=== PATIENT | female | born 1995 | race Two or more races ===

== ENCOUNTER 2023-05-21 14:50 | Emergency (ER) | payer OTHER ==
[~2023-05-21] VITALS: Ht 152.4 cm; Wt 45.4 kg
== END 2023-05-21 20:36 | disposition home or self-care (01) ==
LOC: ER 14:50
DX: U07.1 COVID-19 (principal)

== ENCOUNTER → 2023-06-03 | Outpatient (CLI) | payer OTHER | END | disposition home or self-care (01) | LOC: SONOGRAMA 09:07 | DX: E06.3 Autoimmune thyroiditis (principal) ==

== ENCOUNTER 2023-09-22 08:18 | Outpatient (CLI) | payer OTHER | END 2023-09-22 09:23 | disposition home or self-care (01) | LOC: SONOGRAMA 08:18 | DX: N94.6 Dysmenorrhea, unspecified (principal); N83.00 Follicular cyst of ovary, unspecified side; N92.0 Excessive and frequent menstruation with regular cycle; R10.30 Lower abdominal pain, unspecified; K59.04 Chronic idiopathic constipation; M99.01 Segmental and somatic dysfunction of cervical region; M99.02 Segmental and somatic dysfunction of thoracic region; M99.03 Segmental and somatic dysfunction of lumbar region ==

== ENCOUNTER 2024-01-11 08:50 | Outpatient (CLI) | payer OTHER | END 2024-01-11 09:00 | disposition home or self-care (01) | LOC: TOM 08:50 | DX: N80.9 Endometriosis, unspecified (principal); R10.2 Pelvic and perineal pain ==

== ENCOUNTER 2024-07-26 08:35 | Outpatient (CLI) | payer OTHER ==
[2024-07-26 10:45] LABS: CREATININE SERUM 0.55 mg/dL (0.55-1.02)
== END 2024-07-26 08:39 | disposition home or self-care (01) ==
LOC: LAB 08:35
PROVIDERS: ATTEND Radiology Diagnostic Radiology
DX: R10.2 Pelvic and perineal pain (principal); R97.8 Other abnormal tumor markers; R97.1 Elevated cancer antigen 125 [CA 125]

== ENCOUNTER 2024-07-27 07:24 | Outpatient (CLI) | payer OTHER | END 2024-07-27 07:35 | disposition home or self-care (01) | LOC: TOM 07:24 | DX: R10.2 Pelvic and perineal pain (principal); N80.9 Endometriosis, unspecified; D25.1 Intramural leiomyoma of uterus ==